=== PATIENT | female | born 1990 | race Caucasian/White ===

== ENCOUNTER 2017-09-01 18:17 | Emergency (ER) | payer MEDICAID ==
[2017-09-01 18:32] VITALS: BP 126/56
[2017-09-01] MEDS ORDERED: ONDANSETRON HCL INJ/PF 4 MG/2 ML SDV IV ONE (20:06)
[2017-09-01] MEDS ORDERED: NORMAL SALINE 1000 ML 1,000 ML IV ONE ×2 (20:06→23:08)
--- NOTE | 2017-09-01 20:09 | ER Document Report ---
ED Medical Screen (RME) - General Chief Complaint: Nausea/Vomiting Stated Complaint: VOMITING, TINGLING IN HANDS Time Seen by Provider: 09/01/17 20:05 Notes: 25-year-old female 001 at 8 weeks states by ultrasound and presents today with 15-20 bouts of nonbloody nonbilious vomiting starting last night. She also states she is very upset with some bilateral hand "tingling". Patient was told yesterday by ultrasound that she was having a miscarriage at her [employer]NA[employer]'s office with [facility]. Patient states she did have some vomiting in early but nothing like the last 24 hours. She denies currently any abdominal pain or diarrhea. She denies any fevers or flank pain. On examination the patient is shaking. Heart and lung examination is unremarkable. Abdomen is soft and nontender. No flank pain or tenderness. Given the history and physical we will order fluids, labs, urinalysis, and reassess. TRAVEL OUTSIDE OF THE [place] IN LAST 30 DAYS: No - Related Data Allergies/Adverse Reactions: No Known Allergies Allergy (Verified 09/01/17 18:18) Past Medical History - Immunizations Hx Diphtheria, Pertussis, Tetanus Vaccination: Yes - 01/2013 Physical Exam - Vital signs Vitals: Temp Pulse Resp BP Pulse Ox 98.7 F 53 L 20 126/56 H 99 09/01/17 18:32 09/01/17 18:32 09/01/17 18:32 09/01/17 18:32 09/01/17 18:32 Course - Vital Signs Vital signs: Temp Pulse Resp BP Pulse Ox 98.7 F 53 L 20 126/56 H 99 09/01/17 18:32 09/01/17 18:32 09/01/17 18:32 09/01/17 18:32 09/01/17 18:32
[2017-09-01 21:11] LABS: ABSOLUTE EOSINOPHILS # (AUTO) 0.1 10^3/uL (0.0-0.6); ABSOLUTE LYMPHOCYTES (AUTO) 4.5 10^3/uL (0.5-4.7); ABSOLUTE MONOCYTES (AUTO) 1.1 10^3/uL (0.1-1.4); ABSOLUTE NEUT (AUTO) 10.2 10^3/uL (1.7-8.2); BASOPHILS % (AUTO) 0.2 % (0-2); EOSINOPHILS % (AUTO) 0.3 % (0-6); HEMATOCRIT 40.3 % (36.0-47.0); HEMOGLOBIN 13.6 g/dL (12.0-15.5); LYMPHOCYTES % (AUTO) 28.5 % (13-45); MEAN CORPUSCULAR HEMOGLOBIN 32.9 pg (27.0-33.4); MEAN CORPUSCULAR HGB CONC 33.8 g/dL (32.0-36.0); MEAN CORPUSCULAR VOLUME 97 fl (80-97); MONOCYTES % (AUTO) 6.7 % (3-13); PLATELET COUNT 409 10^3/uL (150-450); RED BLOOD COUNT 4.14 10^6/uL (3.72-5.28); RED CELL DISTRIBUTION WIDTH 13.2 % (11.5-14.0); SEGMENTED NEUTROPHILS % (AUTO) 64.3 % (42-78); TOTAL CELLS COUNTED % (AUTO) 100 %; WHITE BLOOD COUNT 15.8 10^3/uL (4.0-10.5)
[2017-09-01 21:25] LABS: ALANINE AMINOTRANSFERASE 45 U/L (9-52); ALBUMIN 5.2 g/dL (3.5-5.0); ALKALINE PHOSPHATASE 78 U/L (38-126); ANION GAP 17 (5-19); ASPARTATE AMINO TRANSFERASE 26 U/L (14-36); BILIRUBIN,DIRECT 0.2 mg/dL (0.0-0.4); BILIRUBIN,TOTAL 0.4 mg/dL (0.2-1.3); BLOOD UREA NITROGEN 6 mg/dL (7-20); CARBON DIOXIDE 22 mmol/L (22-30); CHLORIDE 100 mmol/L (98-107); GLUCOSE 104 mg/dL (75-110); POTASSIUM 3.5 mmol/L (3.6-5.0); TOTAL PROTEIN 8.2 g/dL (6.3-8.2)
--- NOTE | 2017-09-01 22:43 | ER Document Report ---
ED GI/ - General Chief Complaint: Nausea/Vomiting Stated Complaint: VOMITING, TINGLING IN HANDS Time Seen by Provider: 09/01/17 20:05 Notes: The patient is a 27-year-old female, LMP 8 weeks ago, presents with 1 day of nausea and vomiting. She is now noticing some tingling in her bilateral hands. Patient had 2 separate ultrasounds at [facility] that confirmed a intrauterine sac without a fetus and she said that she was going to have a miscarriage. She has had hyperemesis gravidarum during this and tried her likely just in Zofran at home without much relief of her symptoms. Patient denies any active vaginal bleeding, abdominal pain or cramping, dysuria, flank pain, hematuria, fevers, diarrhea, constipation, sick contacts, hematemesis, recent travel or ingestion of undercooked food. TRAVEL OUTSIDE OF THE [place] IN LAST 30 DAYS: No - Related Data Allergies/Adverse Reactions: No Known Allergies Allergy (Verified 09/01/17 18:18) Past Medical History - General Information source: Patient - Social History Smoking Status: Unknown if Ever Smoked Family History: Reviewed & Not Pertinent - Immunizations Hx Diphtheria, Pertussis, Tetanus Vaccination: Yes - 01/2013 Review of Systems - Review of Systems Notes: REVIEW OF SYSTEMS: CONSTITUTIONAL: -fevers, -chills EENT: -eye pain, -difficulty swallowing, -nasal congestion CARDIOVASCULAR:-chest pain, -syncope. RESPIRATORY: -cough, -SOB GASTROINTESTINAL: -abdominal pain, +nausea, +vomiting, -diarrhea GENITOURINARY: -dysuria, -hematuria MUSCULOSKELETAL: -back pain, -neck pain SKIN: -rash or skin lesions. HEMATOLOGIC: -easy bruising or bleeding. LYMPHATIC: -swollen, enlarged glands. NEUROLOGICAL: -altered mental status or loss of consciousness, -headache, - neurologic symptoms PSYCHIATRIC: -anxiety, -depression. ALL OTHER SYSTEMS REVIEWED AND NEGATIVE. Physical Exam - Vital signs Vitals: Temp Pulse Resp BP Pulse Ox 98.7 F 53 L 20 126/56 H 99 09/01/17 18:32 09/01/17 18:32 09/01/17 18:32 09/01/17 18:32 09/01/17 18:32 - Notes Notes: PHYSICAL EXAMINATION: GENERAL: Well-appearing, well-nourished and in no acute distress. HEAD: Atraumatic, normocephalic. EYES: Pupils equal round and reactive to light, extraocular movements intact, sclera anicteric, conjunctiva are normal. ENT: nares patent, oropharynx clear without exudates. Moist mucous membranes. NECK: Normal range of motion, supple without lymphadenopathy LUNGS: Breath sounds clear to auscultation bilaterally and equal. No wheezes rales or rhonchi. HEART: Regular rate and rhythm without murmurs ABDOMEN: Soft, nontender, normoactive bowel sounds. No guarding, no rebound. No masses appreciated. EXTREMITIES: Normal range of motion, no pitting or edema. No cyanosis. NEUROLOGICAL: Cranial nerves grossly intact. Normal speech, normal gait. Normal sensory and motor exams. PSYCH: Normal mood, normal affect. SKIN: Warm, Dry, normal turgor, no rashes or lesions noted. Course - Re-evaluation Re-evalutation: Patient appears well and her abdomen is completely soft and nontender. Labs are unremarkable, other than a leukocytosis, which may be related to her nausea and vomiting. No focal signs of infection at this time. Provided patient with IV fluids, antiemetics and she is now tolerating fluids without nausea or vomiting. Instructed her to continue to stay hydrated and will send home with Reglan. She has Diclegis just at home. She is following up with OB for further management of her inevitable miscarriage. - Vital Signs Vital signs: Temp Pulse Resp BP Pulse Ox 98.7 F 53 L 20 126/56 H 99 09/01/17 18:32 09/01/17 18:32 09/01/17 18:32 09/01/17 18:32 09/01/17 18:32 - Laboratory Result Diagrams: 09/01/17 20:25 09/01/17 20:25 Laboratory results interpreted by me: 09/01/17 09/01/17 20:25 20:25 WBC 15.8 H Absolute Neutrophils 10.2 H Potassium 3.5 L BUN 6 L Creatinine 0.44 L Calcium 11.0 H Albumin 5.2 H Discharge - Discharge Clinical Impression: Nausea and vomiting Qualifiers: Vomiting type: unspecified Vomiting Intractability: unspecified Qualified Code( s): R11.2 - Nausea with vomiting, unspecified Condition: Stable Additional Instructions: VOMITING: Vomiting (or nausea without vomiting) can be caused by many other different problems. It can mean that something's wrong with the stomach, such as ulcers or inflammation or the intestinal tract, such as appendicitis. But it can also be a symptom of a problem that has nothing to do with the stomach or intestines. Vomiting is common with severe headaches, earaches, tonsillitis, and kidney infections, etc. We see it with pneumonia or heart attacks. Drugs can cause nausea and vomiting. Many abdominal problems cause vomiting; for example, gallstones, kidney stones, pancreatitis, and intestinal obstruction ( blocked bowels). In most cases, curing the vomiting depends on fixing the problem that caused it. For temporary relief, we may use an anti-nausea medicine. For home use, we can prescribe suppositories, chewable pills, pills that dissolve in the mouth, or liquid anti-nausea drugs. If the vomiting seems to be caused by a problem in the stomach, acid-suppressing drugs may be prescribed as well. It's important to avoid dehydration. Sip small amounts of clear liquids ( soft drinks, tea, broth, etc) . Try to take fluids frequently even if you are vomiting to prevent dehydration. Take increasing amounts of fluid and when liquids are being consumed successfully, advance to small amounts of bland food (toast, soups, mashed potatoes, etc.) until you are able to resume a regular diet. Avoid aspirin, tobacco, and alcohol. If the vomiting worsens, if the problem that's making you vomit worsens, or if there's evidence of bleeding in the stomach (such as black, tarry stool, or bloody or black vomit), you should return immediately. Also, return if abdominal pain worsens or becomes localized to one area or you develop high fever. Call your doctor if you aren't improved in 24 hours. INTRAVENOUS (I V) FLUIDS: As part of your care today, you received intravenous (IV) fluids. IV fluids are administered to patients who are dehydrated or to those who have certain chemical (electrolyte) abnormalities that need correcting. ANTINAUSEA MEDICATION: You have been given a medication to suppress nausea and vomiting. This type of medication can be given as a shot, pill, or suppository. It will usually last for many hours. Pills and shots usually last six to eight hours. For the typical illness, only one or two doses of the medication may be necessary. Mild lightheadedness may occur. This type of medicine can cause drowsiness. Do not drive or operate dangerous machinery while under its influence. Do not mix with alcohol. See your doctor at once if you have muscle spasms or tightness, or uncontrollable motions (particularly of the neck, mouth, or jaw). Persistent vomiting or severe lightheadedness should also be evaluated by the physician. REGLAN (METOCLOPRAMIDE): Reglan has been prescribed. This medicine affects the stomach and intestines. It can be used to treat nausea and vomiting, to prevent reflux of stomach acid up into the esophagus, or to increase the contractions of the stomach and intestines. It is often prescribed for esophagitis, and for paralysis of the stomach in diabetics. Reglan can cause either mild restlessness or drowsiness. You should contact the doctor at once if you become extremely restless, anxious, or cannot sleep, or if you develop uncontrollable motions of the lips, tongue, or jaw. Do not take alcohol with this medicine. Do not drive or operate machinery until you have been taking this medicine long enough to know how it affects you. Call the doctor if you develop abdominal pains, lightheadedness, black stool, or blood in the stool or vomitus. FOLLOW-UP CARE: If you have been referred to a physician for follow-up care, call the physician s office for an appointment as you were instructed or within the next two days. If you experience worsening or a significant change in your symptoms, notify the physician immediately or return to the Emergency Department at any time for re-evaluation. Prescriptions: Metoclopramide HCl [Reglan 10 mg Tablet] 1 - 2 tab PO ASDIR PRN #25 tablet PRN Reason: Referrals: ARY GLORIA MD [Primary Care Provider] - Follow up as needed
[2017-09-01] MEDS ORDERED: METOCLOPRAMIDE HCL INJ/PF 10 MG/2 ML SDV IV ONE (23:08)
[2017-09-01 23:35] LABS: APPEARANCE,URINE SLIGHTLY-CLOUDY; BILIRUBIN,URINE NEGATIVE (NEGATIVE); COLOR,URINE YELLOW; GLUCOSE, URINE NEGATIVE (NEGATIVE); KETONES,URINE 80 mg/dL (NEGATIVE); LEUKOCYTE ESTERASE,URINE TRACE (NEGATIVE); NITRITE,URINE NEGATIVE (NEGATIVE); PROTEIN,URINE NEGATIVE (NEGATIVE); URINE SPECIFIC GRAVITY 1.016; UROBILINOGEN,URINE NEGATIVE mg/dL (<2.0)
== END 2017-09-02 00:45 | disposition home or self-care (01) ==
LOC: ER 18:17
DX: O21.0 Mild hyperemesis gravidarum (principal); O99.111 Other diseases of the blood and blood-forming organs and certain disorders involving the immune mechanism complicating pregnancy, first trimester; D72.829 Elevated white blood cell count, unspecified; Z3A.08 8 weeks gestation of pregnancy; O26.891 Other specified pregnancy related conditions, first trimester
CPT/HCPCS: 99283; 96361; 96374; 96375; 36415; 84702; 85025; 80053; 81001; J2765; J2405; J7030

== ENCOUNTER 2020-01-02 11:57 | Outpatient (CLI) | payer MEDICAID ==
[2020-01-02 12:44] LABS: APPEARANCE,URINE CLOUDY; BILIRUBIN,URINE NEGATIVE (NEGATIVE); COLOR,URINE YELLOW; GLUCOSE, URINE NEGATIVE (NEGATIVE); KETONES,URINE NEGATIVE (NEGATIVE); LEUKOCYTE ESTERASE,URINE TRACE (NEGATIVE); NITRITE,URINE NEGATIVE (NEGATIVE); PROTEIN,URINE 30 mg/dL (NEGATIVE); URINE SPECIFIC GRAVITY 1.014; UROBILINOGEN,URINE NEGATIVE mg/dL (<2.0)
[2020-01-02 13:00] LABS: URINE AMPHETAMINES SCREEN NEGATIVE; URINE BARBITURATES SCREEN NEGATIVE; URINE BENZODIAZEPINES SCREEN NEGATIVE; URINE COCAINE SCREEN NEGATIVE; URINE METHADONE SCREEN NEGATIVE; URINE PHENCYCLIDINE SCREEN NEGATIVE
[2020-01-02 13:05] LABS: URINE MARIJUANA (THC) SCREEN UNCONFIRMED POSITIVE
[2020-01-02] MEDS ORDERED: HYDROXYZINE PAMOATE 50 MG CAPSULE PO ONE (14:03)
[2020-01-02] MEDS ORDERED: HYDROXYZINE PAMOATE 50 MG CAPSULE ONE (14:08)
--- NOTE | 2020-01-02 14:25 | Non Stress Test Report ---
Non Stress Test Datetime Report Generated by CPN: 01/02/2020 14:25 DEMOGRAPHIC Test Number: 1 EGA NST: 38.1 INDICATION Indication for Study (NST) Other: labor check VITAL SIGNS Temperature - NST: 98.3 Pulse - NST: 90 RESP - NST: 16 NBPSYS NST: 127 NBPDIA NST: 65 MONITORING Monitor Explained: Monitor Explained; Test Explained; Patient Verbalized Understanding Time on Monitor: 01/02/2020 12:19 Time off Monitor: 01/02/2020 13:13 NST Duration: 54 NST INTERVENTIONS NST Interventions: PO Hydration; Reposition Patient Physician Notified NST: N Paz BABY A: [id number] BABY A Movement : Present Contraction Frequency : 5 FHR Baseline : 130 Accelerations : 15X15 Decelerations : None Variability : Moderate 6-25bpm NST Review: Meets Criteria for Reactive NST NST Review and Verified By : Miriam Ramirez RNC NST Results: Reactive NST REPORT Report Trigger: Send Report
== END 2020-01-02 14:19 | disposition home or self-care (01) ==
LOC: LC 11:57
PROVIDERS: ATTEND Obstetrics & Gynecology Gynecology
DX: O26.893 Other specified pregnancy related conditions, third trimester (principal); M54.9 Dorsalgia, unspecified; Z3A.38 38 weeks gestation of pregnancy
CPT/HCPCS: 59025; 81005; 80307; G0480 ×2; J3490; 80349

== ENCOUNTER 2020-01-06 05:50 | Inpatient (IN) | payer MEDICAID ==
[2020-01-06] MEDS ORDERED: MISOPROSTOL 0.2 MG TABLET ONE (06:12)
[2020-01-06] MEDS ORDERED: OXYTOCIN 10 UNIT/ML VIAL ONE (06:12)
[2020-01-06] MEDS ORDERED: LIDOCAINE 1% INJ-PF (10 MG/ML) 30 ML SDV ONE (06:12)
[2020-01-06] MEDS ORDERED: OXYTOCIN/NORMAL SALINE 20 UNIT/1,000 ML RTUINJ ONE (06:12)
[2020-01-06] MEDS ORDERED: RINGERS SOLUTION,LACTATED 1,000 ML IV PRN (06:15)
[2020-01-06] MEDS ORDERED: RINGERS SOLUTION,LACTATED 1,000 ML IV ONE (06:15)
--- NOTE | 2020-01-06 07:04 | Admission Physical ---
Datetime Report Generated by CPN: 01/06/2020 07:03 CURRENT ADMISSION Chief Complaint: Uterine Contractions Indication for Induction: Not Applicable Admit Impression : Term, Intrauterine ; Active Labor Admit Plan: Admit to Unit; Initiate Labor Protocol ALLERGIES Medication Allergies: No Known Allergies (09/01/2017) OBSTETRICAL HISTORY EDC: 01/15/2020 00:00 : 3 Para: 1 Term: 1 Livin PHYSICAL EXAM General: Normal HEENT: Normal Neurologic: Normal Thyroid: Normal Heart: Normal Lungs: Normal Breast: Deferred Back: Normal Abdomen: Normal Genitourinary Exam: Normal Extremities: Normal DTRs: Normal Pelvic Type: Adequate Vital Signs: Reviewed FETUS A EGA: 38.5 Monitoring: External US Decelerations: None Admit Comment: Pt delivered. INFORMED CONSENT Signature: with User ID: [email or web address]
[2020-01-06] MEDS ORDERED: MAGNESIUM HYDROXIDE SUSP 30 ML UDCUP PO PRN (07:10)
[2020-01-06] MEDS ORDERED: OXYTOCIN/NORMAL SALINE 20 UNIT/1,000 ML RTUINJ IV PRN (07:10)
[2020-01-06] MEDS ORDERED: DIPH/PERTUSS(ACELL)/TETANUS VAC/PF 0.5 ML SYR (>=10YO) IM PRN (07:10)
[2020-01-06] MEDS ORDERED: ACETAMINOPHEN WITH CODEINE #3 TABLET PO PRN (07:10)
[2020-01-06] MEDS ORDERED: BENZOCAINE/MENTHOL AEROSOL SPRAY 56 ML TOP PRN (07:10)
[2020-01-06] MEDS ORDERED: ACETAMINOPHEN 650 MG SUPP.RECT PR PRN (07:10)
[2020-01-06] MEDS ORDERED: DIPHENHYDRAMINE HCL 25 MG CAPSULE PO PRN (07:10)
[2020-01-06] MEDS ORDERED: ZOLPIDEM TARTRATE 5 MG TABLET PO PRN (07:10)
[2020-01-06] MEDS ORDERED: MEASLES,MUMPS&RUBELLA VACC/PF 0.5 ML VIAL SUBCUT PRN (07:10)
[2020-01-06] MEDS ORDERED: NA PHOS,M-B/NA PHOS,DI-BA (ADULT) 133 ML ENEMA PR PRN (07:10)
[2020-01-06] MEDS ORDERED: PROMETHAZINE HCL INJ 25 MG/1 ML VIAL IV PRN (07:10)
[2020-01-06] MEDS ORDERED: PROMETHAZINE HCL 25 MG SUPP.RECT PR PRN (07:10)
[2020-01-06] MEDS ORDERED: PSEUDOEPHEDRINE HCL 30 MG TABLET PO PRN (07:10)
[2020-01-06] MEDS ORDERED: DIBUCAINE 1% OINTMENT 28 GM TP PRN (07:10)
[2020-01-06] MEDS ORDERED: PROMETHAZINE HCL 25 MG TABLET PO PRN (07:10)
[2020-01-06] MEDS ORDERED: GLYCERIN/WITCH HAZEL LEAF 1 EACH MED..WIPE TP PRN (07:10)
[2020-01-06 07:35] LABS: APPEARANCE,URINE SLIGHTLY-CLOUDY; BILIRUBIN,URINE NEGATIVE (NEGATIVE); COLOR,URINE YELLOW; GLUCOSE, URINE NEGATIVE (NEGATIVE); KETONES,URINE NEGATIVE (NEGATIVE); LEUKOCYTE ESTERASE,URINE NEGATIVE (NEGATIVE); NITRITE,URINE NEGATIVE (NEGATIVE); PROTEIN,URINE NEGATIVE (NEGATIVE); URINE SPECIFIC GRAVITY 1.012; UROBILINOGEN,URINE NEGATIVE mg/dL (<2.0)
[2020-01-06] MEDS ORDERED: ACETAMINOPHEN WITH CODEINE #3 TABLET ONE (07:42)
[2020-01-06] MEDS ORDERED: IBUPROFEN 800 MG TABLET ONE (07:43)
[2020-01-06] MEDS: ACETAMINOPHEN WITH CODEINE #3 TABLET PO PRN (07:47)
[2020-01-06 07:56] LABS: URINE AMPHETAMINES SCREEN NEGATIVE; URINE BARBITURATES SCREEN NEGATIVE; URINE BENZODIAZEPINES SCREEN NEGATIVE; URINE COCAINE SCREEN NEGATIVE; URINE METHADONE SCREEN NEGATIVE; URINE PHENCYCLIDINE SCREEN NEGATIVE
[2020-01-06 08:02] LABS: URINE MARIJUANA (THC) SCREEN UNCONFIRMED POSITIVE
[2020-01-06 08:38] LABS: ABSOLUTE BASOPHILS # (AUTO) 0.1 10^3/uL (0.0-0.2); ABSOLUTE EOSINOPHILS # (AUTO) 0.2 10^3/uL (0.0-0.6); ABSOLUTE LYMPHOCYTES (AUTO) 1.9 10^3/uL (0.5-4.7); ABSOLUTE MONOCYTES (AUTO) 0.8 10^3/uL (0.1-1.4); ABSOLUTE NEUT (AUTO) 11.6 10^3/uL (1.7-8.2); BASOPHILS % (AUTO) 0.5 % (0-2); EOSINOPHILS % (AUTO) 1.2 % (0-6); HEMATOCRIT 33.9 % (36.0-47.0); HEMOGLOBIN 11.7 g/dL (12.0-15.5); LYMPHOCYTES % (AUTO) 12.9 % (13-45); MEAN CORPUSCULAR HEMOGLOBIN 34.3 pg (27.0-33.4); MEAN CORPUSCULAR HGB CONC 34.6 g/dL (32.0-36.0); MEAN CORPUSCULAR VOLUME 99 fl (80-97); MONOCYTES % (AUTO) 5.3 % (3-13); PLATELET COUNT 318 10^3/uL (150-450); RED BLOOD COUNT 3.42 10^6/uL (3.72-5.28); RED CELL DISTRIBUTION WIDTH 15.6 % (11.5-14.0); SEGMENTED NEUTROPHILS % (AUTO) 80.1 % (42-78); TOTAL CELLS COUNTED % (AUTO) 100 %; WHITE BLOOD COUNT 14.4 10^3/uL (4.0-10.5)
[2020-01-06] MEDS ORDERED: MISOPROSTOL 0.2 MG TABLET PR ONE (09:00)
[2020-01-06] MEDS: FAMOTIDINE 20 MG TABLET PO SCH ×2 (10:11→21:35)
[2020-01-06] MEDS: DOCUSATE SODIUM 100 MG CAPSULE PO SCH ×2 (10:11→17:12)
[2020-01-06] MEDS: FERROUS SULFATE 325 MG TABLET PO SCH ×2 (10:11→17:12)
[2020-01-06] MEDS: PRENATAL VITAMIN W DHA CAPSULE PO SCH (10:11)
[2020-01-06] MEDS: SENNOSIDES/DOCUSATE 8.6-50 MG 1 EACH TABLET PO SCH (10:11)
[2020-01-06] MEDS: IBUPROFEN 800 MG TABLET PO SCH ×2 (13:36→21:34)
[2020-01-07] MEDS: IBUPROFEN 800 MG TABLET PO SCH ×3 (05:18→21:59)
[2020-01-07 07:30] LABS: HEMATOCRIT 33.5 % (36.0-47.0); MEAN CORPUSCULAR HEMOGLOBIN 35.2 pg (27.0-33.4); MEAN CORPUSCULAR HGB CONC 35.7 g/dL (32.0-36.0); MEAN CORPUSCULAR VOLUME 99 fl (80-97); PLATELET COUNT 315 10^3/uL (150-450); RED BLOOD COUNT 3.39 10^6/uL (3.72-5.28); RED CELL DISTRIBUTION WIDTH 15.5 % (11.5-14.0); WHITE BLOOD COUNT 15.1 10^3/uL (4.0-10.5)
[2020-01-07] MEDS: ACETAMINOPHEN WITH CODEINE #3 TABLET PO PRN (07:53)
[2020-01-07] MEDS: DOCUSATE SODIUM 100 MG CAPSULE PO SCH ×2 (09:20→17:29)
[2020-01-07] MEDS: SENNOSIDES/DOCUSATE 8.6-50 MG 1 EACH TABLET PO SCH (09:20)
[2020-01-07] MEDS: PRENATAL VITAMIN W DHA CAPSULE PO SCH (09:20)
[2020-01-07] MEDS: FERROUS SULFATE 325 MG TABLET PO SCH ×2 (09:20→17:29)
[2020-01-07] MEDS: FAMOTIDINE 20 MG TABLET PO SCH ×2 (09:20→21:59)
--- NOTE | 2020-01-07 14:46 | PDOC PROGRESS REPORT ---
Subjective-OB Progress Note for:: 01/07/20 Subjective: 29yo G3 now P2 s/p ppd 1. Pt ambulating, voiding and without difficulty. Reports pain well controlled by medication, no concerns today. Physical Exam (OB) Vital Signs: Temp Pulse Resp BP Pulse Ox 97.8 F 58 L 16 109/54 L 100 01/07/20 08:00 01/07/20 08:00 01/07/20 08:00 01/07/20 08:00 01/07/20 08:00 Intake & Output 01/06/20 01/07/20 01/08/20 06:59 06:59 06:59 Intake Total 600 Balance 600 Weight 66.8 kg - General General Appearance: Appears well In distress: None - Episiotomy/Laceration Site Condition: Well Approximated - Lochia Lochia Amount: Small 10-25 ml Lochia Color: Rubra/Red - Abdomen Description: Soft Hernia Present: No Fundal Description: Firm, Midline Fundal Height: u/u - u/2 - Respiratory Respiratory Status: No respiratory distress - Extremities Upper extremity: Normal inspection Lower extremities: Normal inspection - Neurological Cognition: Normal Orientation: AAOx4 - Psychological Associated symptoms: Normal affect, Normal mood Objective-Diagnostic Laboratory: 01/07/20 06:48 01/07/20 06:48 WBC 15.1 H RBC 3.39 L Hgb 12.0 Hct 33.5 L MCV 99 H MCH 35.2 H MCHC 35.7 RDW 15.5 H Plt Count 315 Assessment and Plan(PN) - Assessment and Plan (1) Vaginal delivery Is this a current diagnosis for this admission?: Yes Plan: routine pp care (2) History of depression Is this a current diagnosis for this admission?: Yes Plan: continue to monitor for s/s of pp depression, continue zoloft and discharge planning consult placed (3) 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
[2020-01-07] MEDS ORDERED: SERTRALINE HCL 50 MG TABLET PO SCH (22:00)
[2020-01-08] MEDS: IBUPROFEN 800 MG TABLET PO SCH ×2 (05:16→13:03)
[2020-01-08 07:55] VITALS: BP 129/75
[2020-01-08] MEDS: FAMOTIDINE 20 MG TABLET PO SCH (09:41)
[2020-01-08] MEDS: SENNOSIDES/DOCUSATE 8.6-50 MG 1 EACH TABLET PO SCH (09:41)
[2020-01-08] MEDS: PRENATAL VITAMIN W DHA CAPSULE PO SCH (09:41)
[2020-01-08] MEDS: DOCUSATE SODIUM 100 MG CAPSULE PO SCH (09:41)
[2020-01-08] MEDS: FERROUS SULFATE 325 MG TABLET PO SCH (09:41)
--- NOTE | 2020-01-08 12:16 | PDOC DISCHARGE SUMMARY ---
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 Is this a current diagnosis for this admission?: Yes (2) History of depression Is this a current diagnosis for this admission?: Yes (3) Vaginal delivery Is this a current diagnosis for this admission?: Yes - Additional Information Resuscitation Status: Full Code Discharge Diet: Regular Discharge Activity: Activity As Tolerated, Pelvic Rest Referrals: [facility] [Provider Group] (Please call and schedule a 4 week f/u at [facility].) Home Medications: Pnv W-O Ca No5/Fe Fumarate/FA [-U Capsule] 1 cap PO DAILY 03/02/13 Sertraline HCl 100 mg PO DAILY 01/06/20 HPI Gestational Age: 38.5 Reason(s) for Admission: Onset of Labor Procedures: NST Intrapartum Procedure(s): Spontaneous Vaginal Delivery Complication(s): Laceration-Vaginal Laceration-Degree: 1st Results Laboratory Results: WBC 15.1 10^3/uL (4.0-10.5) H 01/07/20 06:48 RBC 3.39 10^6/uL (3.72-5.28) L 01/07/20 06:48 Hgb 12.0 g/dL (12.0-15.5) 01/07/20 06:48 Hct 33.5 % (36.0-47.0) L 01/07/20 06:48 MCV 99 fl (80-97) H 01/07/20 06:48 MCH 35.2 pg (27.0-33.4) H 01/07/20 06:48 MCHC 35.7 g/dL (32.0-36.0) 01/07/20 06:48 RDW 15.5 % (11.5-14.0) H 01/07/20 06:48 Plt Count 315 10^3/uL (150-450) 01/07/20 06:48 Lymph % (Auto) 12.9 % (13-45) L 01/06/20 07:45 Patrick % (Auto) 5.3 % (3-13) 01/06/20 07:45 Eos % (Auto) 1.2 % (0-6) 01/06/20 07:45 Baso % (Auto) 0.5 % (0-2) 01/06/20 07:45 Absolute Neuts (auto) 11.6 10^3/uL (1.7-8.2) H 01/06/20 07:45 Absolute Lymphs (auto) 1.9 10^3/uL (0.5-4.7) 01/06/20 07:45 Absolute Monos (auto) 0.8 10^3/uL (0.1-1.4) 01/06/20 07:45 Absolute Eos (auto) 0.2 10^3/uL (0.0-0.6) 01/06/20 07:45 Absolute Basos (auto) 0.1 10^3/uL (0.0-0.2) 01/06/20 07:45 Seg Neutrophils % 80.1 % (42-78) H 01/06/20 07:45 Urine Color YELLOW 01/06/20 06:00 Urine Appearance SLIGHTLY-CLOUDY 01/06/20 06:00 Urine pH 7.0 (5.0-9.0) 01/06/20 06:00 Ur Specific [place] 1.012 01/06/20 06:00 Urine Protein NEGATIVE mg/dL (NEGATIVE) 01/06/20 06:00 Urine Glucose (UA) NEGATIVE mg/dL (NEGATIVE) 01/06/20 06:00 Urine Ketones NEGATIVE mg/dL (NEGATIVE) 01/06/20 06:00 Urine Blood NEGATIVE (NEGATIVE) 01/06/20 06:00 Urine Nitrite NEGATIVE (NEGATIVE) 01/06/20 06:00 Urine Bilirubin NEGATIVE (NEGATIVE) 01/06/20 06:00 Urine Urobilinogen NEGATIVE mg/dL (<2.0) 01/06/20 06:00 Ur Leukocyte Esterase NEGATIVE (NEGATIVE) 01/06/20 06:00 Urine WBC (Auto) 1 /HPF 01/06/20 06:00 Urine RBC (Auto) 0 /HPF 01/06/20 06:00 Urine Bacteria (Auto) TRACE /HPF 01/06/20 06:00 Squamous Epi Cells Auto 7 /HPF 01/06/20 06:00 Urine Mucus (Auto) RARE /LPF 01/06/20 06:00 Urine Ascorbic Acid NEGATIVE (NEGATIVE) 01/06/20 06:00 Urine Opiates Screen NEGATIVE 01/06/20 06:00 Urine Methadone Screen NEGATIVE 01/06/20 06:00 Ur Barbiturates Screen NEGATIVE 01/06/20 06:00 Ur Phencyclidine Scrn NEGATIVE 01/06/20 06:00 Ur Amphetamines Screen NEGATIVE 01/06/20 06:00 U Benzodiazepines Scrn NEGATIVE 01/06/20 06:00 Urine Cocaine Screen NEGATIVE 01/06/20 06:00 U Marijuana (THC) Screen UNCONFIRMED POSITIVE 01/06/20 06:00 RPR NONREACTIVE (NONREACTIVE) 01/06/20 07:45 Blood Type A POSITIVE 01/06/20 07:45 Antibody Screen NEGATIVE 01/06/20 07:45 Plan Plan of Treatment: f/u at [facility] 4 wks Time Spent: Less than 30 Minutes
--- NOTE | 2020-01-09 14:29 | Delivery Summary ---
Del Sum A-C Datetime Report Generated by CPN: 01/09/2020 14:29 DELIVERY PERSONNEL DELIVERY PERSONNEL: [id number] Delivery Doctor:: Ludivina Cuevas MD Labor and Delivery Nurse:: Natan Atwood RNsales special agent Nurse:: Rosa Chilel, RNC [employer]/DIRECTOR OF COMMUNITY SERVICES: Adrianne Yoon, SPOOL CLEANER HAND Additional Personnel: : Anali, RN MATERNAL INFORMATION Medications After Delivery: Pitocin Bolus-Please Comment; Pitocin Drip 20 Units/1000ml NSS Meds After Delivery Comment: Pitocin 20 units in 1000 mL NS Estimated Blood Loss (ml): 250 Delivery QBL: 250 Maternal Complications: Precipitous Labor (<3hrs) LABOR SUMMARY EDC: 01/15/2020 00:00 No. Babies in Womb: 1 Attempted: No Labor Anesthesia: None LABOR INFORMATION Reason for Induction: Not Applicable Onset of Labor: 01/06/2020 04:30 Complete Dilatation: 01/06/2020 06:34 Oxytocin: N/A Group B Beta Strep: Negative Antibiotics # of Doses: 0 Steroids Given: None Reason Steroids Not Administered: Not Applicable; Imminent Delivery MEMBRANES Membranes Rupture Method: Spontaneous Rupture of Membranes: 01/06/2020 04:30 Length of Rupture (hr): 2.10 Amniotic Fluid Color: Clear Amniotic Fluid Amount: Moderate Amniotic Fluid Odor: Normal STAGES OF LABOR Stage 1 hr: 2 Stage 1 min: 4 Stage 2 hr: 0 Stage 2 min: 2 Stage 3 hr: 0 Stage 3 min: 6 Total Time in Labor hr: 2 Total Time in Labor min: 12 VAGINAL DELIVERY Episiotomy: None Laceration #1: Vaginal Laceration Extension #1: First Degree Laceration #2: Vaginal Laceration Extension #2: First Degree Laceration #3: None Laceration Repair: Yes Laceration Repair Note: repair with interupted 3-0 chromic suture Sponge Count Correct: Vaginal Sweep Performed Sharps Count Correct: No CSECTION DELIVERY Primary Indication: N/A Secondary Indication: N/A CSection Incidence: N/A Labor: N/A Elective: N/A CSection Incision: N/A BABY A INFORMATION Delivery Date/Time: 01/06/2020 06:36 Method of Delivery: Vaginal Born in Route : No : N/A Forceps: N/A Vacuum Extraction: N/A Shoulder Dystocia : No PRESENTATION/POSITION BABY A Presentation: Cephalic Cephalic Presentation: Vertex Vertex Position: Left Occipital Anterior Breech Presentation: N/A PLACENTA INFORMATION BABY A Placenta Delivery Time : 01/06/2020 06:42 Placenta Method of Delivery: Spontaneous Placenta Status: Delivered SCORES BABY A Heart Rate 1 min: >100 bpm Resp Effort 1 min: Good Cry Reflex Irritability 1 min: Cough or Sneeze or Pulls Away Muscle Tone 1 min: Active Motion Color 1 min: Body [place], Extremities Blue Resuscitation Effort 1 min: Tactile Stimulation SCORE 1 MIN: 9 Heart Rate 5 min: >100 bpm Resp Effort 5 min: Good Cry Reflex Irritability 5 min: Cough or Sneeze or Pulls Away Muscle Tone 5 min: Active Motion Color 5 min: Completely [place] SCORE 5 MIN: 10 INFORMATION BABY A Gestational Age at Delivery: 38.5 Gestational Status: Early Term- 37- 38.6 Weeks Infant Outcome : Liveborn Infant Condition : Stable Sex: Male Infant Sex: Male IDENTIFICATION BABY A Infant Verification Date/Time: 01/06/2020 06:47 ID Band Number: [id number] Mother's Name Verified: Yes Infant RN Verifying : D Suzette US/D [place] RN WEIGHT/LENGTH BABY A Birthweight (gm): 2760 Infant Weight (lb): 6 Infant Weight (oz): 1 Length (in): 18.50 Length (cm): 46.99 CORD INFORMATION BABY A No. Cord Vessels: 3 Nuchal Cord : N/A Cord Blood Taken: N/A Infant Suction: None ASSESSMENT BABY A Respirations: Appears Normal Skin to Skin: Yes Skin to Skin: Yes Skin to Skin Time (min): 60 BABY B INFORMATION : N/A SIGNATURES Signature: with [facility] ID: [email or web address]
== END 2020-01-08 13:26 | disposition home or self-care (01) | DRG 806 ==
LOC: LC 05:50 → LR 06:14 → 2S 09:20
PROVIDERS: ADMIT Obstetrics & Gynecology; ATTEND Obstetrics & Gynecology
PROC: 10E0XZZ Delivery of Products of Conception, External Approach (ICD-10-PCS; principal; 2020-01-06)
PROC: 0HQ9XZZ Repair Perineum Skin, External Approach (ICD-10-PCS; 2020-01-06)
DX: O62.3 Precipitate labor (principal); O99.324 Drug use complicating childbirth; Z37.0 Single live birth; F12.90 Cannabis use, unspecified, uncomplicated; O99.344 Other mental disorders complicating childbirth; F32.9 Major depressive disorder, single episode, unspecified; O70.0 First degree perineal laceration during delivery; Z3A.38 38 weeks gestation of pregnancy
CPT/HCPCS: 36415; 80307; 80349; 81001; 85025; 85027; 86592; 86850; 86900; 86901; 90715; G0480; J2550; J2590; J3490